=== PATIENT | male | born 1945 | race Caucasian/White ===

== ENCOUNTER 2017-05-06 11:26 | Day surgery (SDC) | payer MEDICARE ==
[~2017-05-06] VITALS: Ht 172.7 cm; Wt 108.3 kg
[2017-05-06] VITALS (9 sets, daily range): BP systolic 116–128; BP diastolic 59–62; PULSE 57–88; RESP 14–18; TEMP 97.5–98; O2SAT 94–98
[~2017-05-06 11:26] MED LIST: AMLO10TA2 PO; FENO145T2 PO; GLIP10TA6 PO; INSU1INJ5 SQ; LOSA100T2 PO; METF1000 PO; METO100T PO; MIRTA15 PO; PRAV20TA2 PO; VENL100T PO; ZOSTINJ SQ
[2017-05-06] MEDS ORDERED: IOHEXOL 350 MG/ML 100 ML BTL (for Cath Lab) OTHER ONE (11:27)
[2017-05-06] MEDS ORDERED: ISOS30TA3 PO (12:06)
[2017-05-06] MEDS ORDERED: [UNRECOGNIZED DRUG - OTHER] PO (12:06)
[2017-05-06] MEDS ORDERED: NITR1SUB3 SL (12:06)
[2017-05-06] MEDS ORDERED: ATOR40TA16 PO (12:06)
[2017-05-06 12:16] LABS: AUTOMATED NEUTROPHIL # 5.3 TH/MM3 (1.8-7.7); BASOPHIL % 0.5 % (0.0-2.0); EOSINOPHIL # 0.2 TH/MM3 (0-0.4); EOSINOPHIL % 1.8 % (0.0-4.0); HEMATOCRIT 40.7 % (39.0-51.0); HEMOGLOBIN 13.9 GM/DL (13.0-17.0); LYMPH % 27.2 % (9.0-44.0); LYMPHOCYTE # 2.3 TH/MM3 (1.0-4.8); MEAN CELL VOLUME 87.5 FL (80.0-100.0); MEAN CORPUSCULAR HGB CONC 34.3 % (32.0-36.0); MEAN PLATELET VOLUME 7.5 FL (7.0-11.0); MONO % 7.1 % (0.0-8.0); MONOCYTE # 0.6 TH/MM3 (0-0.9); NEUT % 63.4 % (16.0-70.0); PLATELET COUNT 312 TH/MM3 (150-450); RED BLOOD COUNT 4.65 MIL/MM3 (4.50-5.90); RED CELL DISTRIBUTION WIDTH 13.8 % (11.6-17.2); WHITE BLOOD COUNT 8.3 TH/MM3 (4.0-11.0)
[2017-05-06 12:26] LABS: INTERNATIONAL NORMALIZED RATIO 1.1 RATIO; PROTHROMBIN TIME - PATIENT 10.8 SEC (9.8-11.6)
[2017-05-06 12:30] LABS: BICARBONATE 29.1 MEQ/L (21.0-32.0); CALCIUM 9.8 MG/DL (8.5-10.1); CREATININE 1.42 MG/DL (0.60-1.30)
[2017-05-06] MEDS: HEPARIN-NS/PF INJ 1,000 ML ONE ×2 (13:28→15:58)
[2017-05-06] MEDS: MIDAZOLAM HCL 5 MG/5 ML VIAL ONE ×2 (13:46→16:55)
[2017-05-06] MEDS: HEPARIN SODIUM - IV 10,000 UNITS/10 ML VIAL ONE ×2 (14:24→15:58)
[2017-05-06] MEDS: CLOPIDOGREL 300 MG TAB ONE ×2 (14:59→16:55)
--- NOTE | 2017-05-06 15:24 | CATHPROC ---
[place] HIS Report Study Information Study Number Admission Scheduled Start Study Start [id number] May 06 2017 11:26AM 05/06/2017 May 06 2017 1:13PM [place] Service Cardiac Catheterization Admit Source Facility Department Other [facility] - Production Worker Physician and Clinical Staff Initial Porfirio Blood Chopped Strand Operator Lia Victor BSN Recorder Eusebia Lundy,RT(R) Scrub Alvin Miller,RT(R) Procedures Performed Procedure Location (Site) Vessel Name Angiogram LV LV Ventricle Coronary Angiograms LCA Left Coronary Coronary Angiograms RCA Right Coronary Coronary Angiograms VANESSA-LAD Left Coronary Coronary Angiograms RAMIREZ Graft Right Coronary Coronary Angiograms SVG-OM CIRC L Heart Cath PTCA Lft Main Dist Left Coronary Wire insertion Fem Art (right) Femoral Art Equipment Time Line Installer Description Size Mfg Part Number Used/Scraped TRANSDUCER, TRUWAVE [id number] 13:27 Standout Jobs * Used W/STOCKCOCK *[id number] BALLOON, 1.2 8MM EMERGE PUSH 14:32 BOSTON SCIENTIFIC 1.2 8MM [id number] Used MR 534-548T *[id number] 534-560T *[id number] 534-520T *[id number] *[id number] 14:49 DAIG/[facility] ANGIOSEAL, FR6 VIP FR 6 Used *[id number] 13:27 MEDLINE INDUSTRIES PACK, CCL CUSTOM * Used *[id number] 13:27 MEDLINE PACER PEN, SKIN DUAL W/ RULER * Used *[id number] 14:27 MEDTRONIC BALLOON, 2.0 X 12MM EUPHORA 12MM Used *[id number] BALLOON, 2.5 X 8MM NC [id number] 14:43 MEDTRONIC 8MM Used EUPHORA *[id number] PIG ANG 145 DXTERITY 13:38 MEDTRONIC FR 5 [id number] Used CATHETER [id number] 14:25 Freespee MEDICAL 30 ADRIANA INDEFLATOR Used *[id number] 14:22 Syllabuster SHEATH, FR6.5 PRELUDE 11CM FR 6.5 [id number] Used *[id number] 13:27 Syllabuster WIRE, 3MMJ .035 180CM 180CM Used *[id number] PROBE COVER, STERILE [id number] 13:27 Gyst MEDICAL * Used ULTRASOUND W/ GEL *[id number] 13:27 NAMIC MANIFOLD, 4 PORT * Used *[id number] 13:27 NAMIC TUBING, HIGH PRESSURE 48" 48" Used *[id number] 13:27 NYCOMED OMNIPAQUE, 350 MG, 150ML 150ML [id number] Used 13:36 NYCOMED OMNIPAQUE, 350 MG, 50ML 50ML [id number] Used 14:28 NYCOMED OMNIPAQUE, 350 MG, 50ML 50ML [id number] Used [id number] 13:27 [place] [facility] BL[employer]ET,WARM AIR CCL * Used *[id number] 13:27 TERUMO MEDICAL SHEATH, FR5 TERUMO (10CM) FR 5 Used *[id number] WIRE, RUNTHROUGH NS FLOPPY [id number] 14:25 TERUMO MEDICAL 180CM Used .014 180CM *[id number] Equipment Model, Serial, Lot Number and Expiration Data Description Model Number Serial Number Lot Number Expiration Date ANGIOSEAL, FR6 [facility] [id number] 02-04-2018 History: Current Medications Medication Dosage/Unit Route Frequency Last Date/Time Taken Glucophage LOPRESSOR NTG SL Statins (any) NORVASC Hyzaar History: Allergies Allergy Reaction No Known Allergies History: Risk Factors Family History of Hypertension Dyslipidemia Previous NC Previous Heart Failure Premature CAD Yes Yes Yes No No Prior Valve Prior PCI Prior CABG Prior CABGDate Surgery No No Yes 05/08/2002 Cerebrovascular Peripheral Artery Chronic Lung On Dialysis Diabetes Diabetes Therapy Disease Disease Disease No No No No Yes Oral History: Stress Tests Stress or Imaging Studies Performed Yes Standard Exercise Stress Test No Stress Echo No Stress Test SPECT Stress Test SPECT Result Stress Test SPECT Ischemia Risk/Extent Yes Positive Intermediate Stress Test CMR No Cardiac CTA Coronary Calcium Score No No Labs Hgb (g/dl) Hct (%) WBC (l/cumm) Platelets (thousands) 11.60-17.00 35.00-51.00 4.00-11.00 150.00-450.00 13.9 40.7 8.3 312 Glucose (mg/dl) BUN (mg/dl) Creatinine (mg/dl) BUN:Creatinine (1:x) 74.00-106.00 7.00-18.00 0.50-1.30 10.00-20.00 227 27 1.4 19.3 Na (meq/l) K (meq/l) 136.00-145.00 3.50-5.10 137 4 INR (PTT:PT) 0.90-1.10 1.1 CPK-MB (ng/ML) 0.50-3.60 Not Drawn Medication Medication Total Dose (Bolus/Oral) Medication Total Dosage/Unit 1% XYLOCAINE 20 mL FENTANYL 75 mcg HEPARIN 7000 units PLAVIX 600 mg VERSED 4 mg Medications (Bolus/Oral) Medication Time Given Dosage/Unit Administered By Reason VERSED 05/06/2017 1:46:29 PM 2 mg Edgarusjagjitak Lia 2 mg VERSED given in lab by Lia Victor , CHARLESN in Left Antecubital via Peripheral IV. Ordered b y Porfirio Lamb. FENTANYL 05/06/2017 1:47:05 PM 50 mcg Edgarusrobert Lia 50 mcg FENTANYL given in lab by Lia Victor , CHARLESN in Left Antecubital via Peripheral IV. Order ed by Porfirio Lamb. 1% XYLOCAINE 05/06/2017 1:52:26 PM 20 mL Porfirio Lamb 20 mL 1% XYLOCAINE given in lab by Porfirio Lamb in Right Groin via Subcutaneous. VERSED 05/06/2017 1:53:11 PM 1 mg Edgarusrobert Lia 1 mg VERSED given in lab by Lia Victor , BSN in Left Antecubital via Peripheral IV. Ordered b y Porfirio Lamb. HEPARIN 05/06/2017 2:24:22 PM 7000 units Raji Victoranda 7000 units HEPARIN given in lab by Lia Victor , BSN in Left Antecubital via Peripheral IV. Or dered by Porfirio Lamb. VERSED 05/06/2017 2:36:41 PM 1 mg Valente Lia 1 mg VERSED given in lab by Lia Victor , BSN in Left Antecubital via Peripheral IV. Ordered b y Porfirio Lamb. FENTANYL 05/06/2017 2:37:34 PM 25 mcg Edgarusrobert, Lia 25 mcg FENTANYL given in lab by Lia Victor , CHARLESN in Left Antecubital via Peripheral IV. Order ed by Porfirio Lamb. PLAVIX 05/06/2017 2:59:30 PM 600 mg Lia Victor 600 mg PLAVIX given in lab by Lia Victor BSN via Oral. Ordered by Porfirio Lamb. Medication (Drip) Medication Time Given Dosage/Unit Concentration/Unit Diluent (ml) Solution IV Solutions 05/06/2017 1:13:19 PM 50 mL (IV) NaCl .9 IV Solutions given in lab by Lia Victor BSN in Left Antecubital via Peripheral IV. Pump/Dri p Flow using NaCl .9. Initial Case Assessment Cardiovascular HR Rhythm NIBP Chest Pain 56 jg 124/69 0 Edema Present Skin color Skin Mild Normal Warm Dry Circulatory - Right Pulses Dorsalis Pedis Femoral 2 2 Scale (0,1,2,3,4,d) Circulatory - Left Pulses Dorsalis Pedis Femoral 2 2 Scale (0,1,2,3,4,d) Neurological State Oriented to time-place- Alert Moves all extremities person Respiration - General Respiration Rate SpO2 (%) (B/min) 16 93 Chronological Log Time Study Chronological Log 13:13:03 Patient arrived via Bed. 13:13:05 Patient Name, D.O.B, / Armband Verified By R.N. 13:13:05 Consent signed by the physician and the patient and verified by the Production Worker staff. 13:13:06 Pre-op and post- op instructions given; patient acknowledges understanding of instruction s. 13:13:07 Verbal Stimulation=2 Physical Stimulation=2 Airway=2 Respiration=2 TOTAL=8. (0=absent, 1= limited, 2=present) 13:13:08 Presedation assessment performed by Production Worker RN. 13:13:10 Patient has been NPO for More than 6Hrs. 13:13:11 Skin Breakdown- none per pt 13:13:15 Patient Warmer Placed on the Table. 13:13:16 Cordell Prominences Protected 13:13:18 A # 20 IV was noted in the Antecubital (left). Grade = 0 IV Solutions given in lab by Lia Victor BSN in Left Antecubital via Peripheral IV. Pump/Drip Flow using NaCl 13:13:19 .9. 13:13:20 History and physical on the chart or being dictated. Assessment: Initial Case, HR=56 BPM, Rhythm=jg, HTNN=233/69 mmhg, Chest Pain=0, Edema=Mild, Color=Normal, Skin = Warm, Dry Right Pulses: Erick Ped=2, Femoral=2 13:13:32 Left Pulses: Erick Ped=2, Femoral=2 Neurological: State=Alert, Ox3, WINTERS Respiration: Resp=16 B/min, SpO2=93 % Vitals capture started with the following parameters, Patient=Adult, Interval=5 min, Initial Pr rzgieo=724 mmHg, 13:19:46 Deflation Rate=5 mmHg, Cuff placed on Left Arm 13:21:02 HR=56 bpm, OBZN=543/69 mmhg, SpO2=94.0 %, Resp=19 B/min 13:21:17 Reference ECG taken 13:25:26 HR=57 bpm, SVGL=592/69 mmhg, SpO2=94.0 %, Resp=18 B/min 13:30:25 HR=58 bpm, UMSO=868/68 mmhg, SpO2=94.0 %, Resp=16 B/min 13:30:34 Bilateral groins prepped with 2% chlorhexidine, and draped after a 3 minute waiting time. 13:33:42 MD paged 13:35:28 HR=57 bpm, YEXP=942/67 mmhg, SpO2=93.0 %, Resp=18 B/min 13:35:33 Pressure channel 2 zeroed. 13:36:01 MD responded 13:40:27 HR=55 bpm, XIGH=375/67 mmhg, SpO2=93.0 %, Resp=15 B/min 13:45:33 MD arrived. 13:46:03 HR=60 bpm, UTXU=779/70 mmhg, SpO2=94.0 %, Resp=22 B/min 2 mg VERSED given in lab by Lia Victor BSN in Left Antecubital via Peripheral IV. Ord ered by Zainab, 13:46:29 Porfirio. 50 mcg FENTANYL given in lab by Lia Victor BSN in Left Antecubital via Peripheral IV. Ordered by Zainab, 13:47:05 Porfirio. 13:50:29 HR=56 bpm, FVIY=829/66 mmhg, SpO2=92.0 %, Resp=11 B/min Time Out. Correct patient, correct procedure, correct physician, power injector loaded with con trast with surgical team 13:51:41 present. Time Out Concurred by MD and individual staff in procedure. 13:52:24 Case Start 13:52:26 20 mL 1% XYLOCAINE given in lab by Porfirio Lamb in Right Groin via Subcutaneous. 1 mg VERSED given in lab by Lia Victor BSN in Left Antecubital via Peripheral IV. Ord ered by Zainab, 13:53:11 Porfirio. 13:54:48 Access site was Right Femoral Artery. 13:54:53 A SHEATH, FR5 TERUMO (10CM) FR 5 was advanced into the Fem Art (right) using the Percutaneo us technique. 13:55:22 HR=55 bpm, OPNK=501/61 mmhg, SpO2=93.0 %, Resp=11 B/min A PIG ANG 145 DXTERITY CATHETER FR 5 was advanced over a wire. OMNIPAQUE, 350 MG, 150ML 150ML w as used 13:56:12 for injections. Recorded Pressure: LV, HR=59, Condition=Condition 1 13:58:00 (Left Ventricle) LV 114/10/22 13:58:24 The LV was injected at 10 cc/sec for a total of 30. OMNIPAQUE, 350 MG, 50ML 50ML used. Recorded Pressure: LV, Ao, HR=57, Condition=Condition 1 13:59:33 (Left Ventricle) LV 107/11/19, (Aorta) Ao 103/54/74 13:59:47 Catheter was removed A JL 4.0 INFINITI CATHETER FR 5 was advanced over a wire. OMNIPAQUE, 350 MG, 150ML 150ML was us ed for 14:00:09 injections. 14:00:25 HR=56 bpm, SQXS=694/64 mmhg, SpO2=93.0 %, Resp=12 B/min 14:01:24 The LCA was injected and visualized at various angles. OMNIPAQUE, 350 MG, 150ML 150ML used . Recorded Pressure: Ao, HR=60, Condition=Condition 1 14:02:31 (Aorta) Ao 102/57/77 14:03:21 Catheter was removed A AR MOD INFINITI CATHETER FR 5 was advanced over a wire. OMNIPAQUE, 350 MG, 150ML 150ML was us ed for 14:03:35 injections. 14:05:12 The VANESSA-LAD was injected and visualized at various angles. OMNIPAQUE, 350 MG, 150ML 150ML used. 14:05:27 HR=57 bpm, VWUW=375/64 mmhg, SpO2=93.0 %, Resp=12 B/min 14:06:38 The SVG-OM was injected and visualized at various angles. OMNIPAQUE, 350 MG, 150ML 150ML us ed. 14:10:28 HR=57 bpm, YPSI=084/59 mmhg, SpO2=93.0 %, Resp=13 B/min 14:11:37 The RCA was injected and visualized at various angles. OMNIPAQUE, 350 MG, 150ML 150ML used . 14:12:28 A WIRE, 3MMJ .035 180CM 180CM was inserted via Fem Art (right). 14:13:03 Wire removed 14:15:27 HR=64 bpm, TCEM=330/63 mmhg, SpO2=96.0 %, Resp=14 B/min 14:15:50 Catheter was removed A ANTONIO INFINITI CATHETER FR 5 was advanced over a wire. OMNIPAQUE, 350 MG, 150ML 150ML was used for 14:16:30 injections. 14:18:35 The RAMIREZ to RCA Graft was injected and visualized at various angles. contrast used. 14:20:28 HR=61 bpm, LGUV=585/66 mmhg, SpO2=96.0 %, Resp=14 B/min 14:21:42 Catheter was removed A SHEATH, FR6.5 PRELUDE 11CM FR 6.5 was exchanged in the Fem Art (right). This was necessary in order to 14:22:25 accomodate a larger catheter. 7000 units HEPARIN given in lab by Lia Victor BSN in Left Antecubital via Peripheral IV. Ordered by 14:24:22 Porfirio Lamb. A XBLAD 4.0 GUIDE CATHETER FR 6 was advanced over a wire. OMNIPAQUE, 350 MG, 150ML 150ML was us ed for 14:24:50 injections. 14:25:25 HR=60 bpm, KPIF=875/69 mmhg, SpO2=97.0 %, Resp=13 B/min 14:26:59 A WIRE, RUNTHROUGH NS FLOPPY .014 180CM 180CM was inserted via Fem Art (right). 14:27:44 Interventional wire has crossed the lesion A BALLOON, 2.0 X 12MM EUPHORA 12MM was inserted over WIRE, RUNTHROUGH NS FLOPPY .014 180CM 180C M via 14:28:08 the Fem Art (right). 14:30:21 Balloon Removed. No inflation. 14:30:28 HR=62 bpm, GCUF=815/66 mmhg, SpO2=96.0 %, Resp=15 B/min A BALLOON, 1.2 8MM EMERGE PUSH MR 1.2 8MM was inserted over WIRE, RUNTHROUGH NS FLOPPY .014 180 CM 14:32:15 180CM via the Fem Art (right). A BALLOON, 1.2 8MM EMERGE PUSH MR 1.2 8MM over a WIRE, RUNTHROUGH NS FLOPPY .014 180CM 180CM in the 14:32:38 Lft Main Dist was inflated using a 30 ADRIANA INDEFLATOR at 16 adriana for 33 sec. A BALLOON, 1.2 8MM EMERGE PUSH MR 1.2 8MM over a WIRE, RUNTHROUGH NS FLOPPY .014 180CM 180CM in the 14:34:26 Lft Main Dist was inflated using a 30 ADRIANA INDEFLATOR at 16 adriana for 30 sec. 14:35:29 HR=65 bpm, ZKJP=360/62 mmhg, SpO2=96.0 %, Resp=20 B/min A BALLOON, 1.2 8MM EMERGE PUSH MR 1.2 8MM over a WIRE, RUNTHROUGH NS FLOPPY .014 180CM 180CM in the 14:35:43 Lft Main Dist was inflated using a 30 ADRIANA INDEFLATOR at 16 adriana for 20 sec. A BALLOON, 1.2 8MM EMERGE PUSH MR 1.2 8MM over a WIRE, RUNTHROUGH NS FLOPPY .014 180CM 180CM in the 14:35:50 Lft Main Dist was inflated using a 30 ADRIANA INDEFLATOR at 16 adriana for 22 sec. A BALLOON, 1.2 8MM EMERGE PUSH MR 1.2 8MM over a WIRE, RUNTHROUGH NS FLOPPY .014 180CM 180CM in the 14:36:24 Lft Main Dist was inflated using a 30 ADRIANA INDEFLATOR at 16 adriana for 22 sec. 1 mg VERSED given in lab by Lia Victor BSN in Left Antecubital via Peripheral IV. Ord ered by Zainab, 14:36:41 Porfirio. 14:37:08 Balloon Removed. 25 mcg FENTANYL given in lab by Lia Victor BSN in Left Antecubital via Peripheral IV. Ordered by Zainab, 14:37:34 Porfirio. A BALLOON, 2.0 X 12MM EUPHORA 12MM was inserted over WIRE, RUNTHROUGH NS FLOPPY .014 180CM 180C M via 14:38:42 the Fem Art (right). A BALLOON, 2.0 X 12MM EUPHORA 12MM over a WIRE, RUNTHROUGH NS FLOPPY .014 180CM 180CM in the Lf t Main 14:38:49 Dist was inflated using a 30 ADRIANA INDEFLATOR at 16 adriana for 40 sec. A BALLOON, 2.0 X 12MM EUPHORA 12MM over a WIRE, RUNTHROUGH NS FLOPPY .014 180CM 180CM in the Lf t Main 14:39:26 Dist was inflated using a 30 ADRIANA INDEFLATOR at 16 adriana for 40 sec. A BALLOON, 2.0 X 12MM EUPHORA 12MM over a WIRE, RUNTHROUGH NS FLOPPY .014 180CM 180CM in the Lf t Main 14:40:21 Dist was inflated using a 30 ADRIANA INDEFLATOR at 16 adriana for 36 sec. 14:40:30 HR=62 bpm, EZIQ=347/68 mmhg, SpO2=95.0 %, Resp=10 B/min 14:41:31 Balloon Removed. A BALLOON, 2.5 X 8MM NC EUPHORA 8MM was inserted over WIRE, RUNTHROUGH NS FLOPPY .014 180CM 180 CM via 14:44:16 the Fem Art (right). A BALLOON, 2.5 X 8MM NC EUPHORA 8MM over a WIRE, RUNTHROUGH NS FLOPPY .014 180CM 180CM in the L ft Main 14:44:24 Dist was inflated using a 30 ADRIANA INDEFLATOR at 24 adriana for 53 sec. 14:45:31 HR=60 bpm, SDRE=868/71 mmhg, SpO2=95.0 %, Resp=13 B/min 14:45:33 Balloon Removed. 14:46:37 Wire removed 14:46:42 Catheter was removed 14:47:32 An injection in the Fem Art (right) was made through the SHEATH, FR6.5 PRELUDE 11CM FR 6.5. 14:49:01 closure device placement in the Fem Art (right) 14:50:30 HR=64 bpm, MMXH=334/72 mmhg, SpO2=96.0 %, Resp=12 B/min 14:51:28 Case End 14:51:42 Sterile dressing applied to site 14:51:44 No case complications noted. 14:51:45 Cine recording checked. 14:51:47 Bedside Report will be given. 14:51:49 Implantable Device card placed in patient's chart. 14:51:52 Contrast Scanned 14:51:54 A Left Heart Cath was performed. 14:55:35 HR=60 bpm, FWKM=020/61 mmhg, SpO2=95.0 %, Resp=15 B/min 14:59:30 600 mg PLAVIX given in lab by Lia Victor BSN via Oral. Ordered by Porfirio Lamb . 15:00:24 Patient moved to carrier clinic End Study - Contrast Media Used In Study Contrast Total Opened (mL) Total Used (mL) Total Wasted (mL) Omnipaque 180 180 0 End Study - Maximum Contrast Load Max Contrast Load (mL) 386.9 End Study - Radiation Exposure Fluoro Time (minutes) 19.9 End Study - Patient Disposition Complications Transferred To Telemetry Bed
[2017-05-06] MEDS ORDERED: SODIUM CHLOR 0.9% 1000 ML INJ 1,000 ML IV SCH (17:29)
[2017-05-06] MEDS ORDERED: LIDOCAINE HCL 1% 30 ML VIAL INFIL PRN (17:30)
[2017-05-06] MEDS ORDERED: LORazepam 2 MG/ML VIAL IV PUSH PRN (17:30)
[2017-05-06] MEDS ORDERED: ATROPINE SULFATE 1 MG/ML VIAL IV PUSH PRN (17:30)
[2017-05-06] MEDS ORDERED: SODIUM CHLOR 0.9% 250 ML INJ 250 ML IV PRN (17:30)
[2017-05-06] MEDS ORDERED: MISC INFORMATION XX ONE (17:30)
[2017-05-06] MEDS ORDERED: TEMAZEPAM 15 MG CAP PO PRN (17:30)
[2017-05-06] MEDS ORDERED: BACITRACIN OINT 0.9 GM PKT TOP ONE (17:30)
[2017-05-06] MEDS ORDERED: ACETAMINOPHEN 325 MG TAB PO PRN (17:30)
[2017-05-06] MEDS ORDERED: LIDOCAINE 2% JELLY 30 ML TUBE TOP PRN (17:30)
[2017-05-06] MEDS ORDERED: LIDOCAINE HCL 2% JELLY 5 ML SYRINGE TOPICAL PRN (18:15)
[2017-05-06] MEDS ORDERED: MIRTAZAPINE 15 MG TAB PO SCH (21:00)
[2017-05-06] MEDS: INSULIN DETEMIR 100 UNITS/ML VIAL SQ SCH (21:00)
[2017-05-06] MEDS ORDERED: ATORVASTATIN 40 MG TAB PO SCH (21:00)
[2017-05-06 21:30] LABS: AUTOMATED NEUTROPHIL # 3.7 TH/MM3 (1.8-7.7); BASOPHIL % 0.4 % (0.0-2.0); EOSINOPHIL # 0.1 TH/MM3 (0-0.4); HEMATOCRIT 36.8 % (39.0-51.0); HEMOGLOBIN 12.7 GM/DL (13.0-17.0); LYMPH % 38.3 % (9.0-44.0); LYMPHOCYTE # 2.7 TH/MM3 (1.0-4.8); MEAN CELL VOLUME 86.9 FL (80.0-100.0); MEAN CORPUSCULAR HGB CONC 34.5 % (32.0-36.0); MEAN PLATELET VOLUME 7.1 FL (7.0-11.0); MONO % 7.6 % (0.0-8.0); MONOCYTE # 0.5 TH/MM3 (0-0.9); NEUT % 51.7 % (16.0-70.0); PLATELET COUNT 261 TH/MM3 (150-450); RED BLOOD COUNT 4.23 MIL/MM3 (4.50-5.90); RED CELL DISTRIBUTION WIDTH 13.5 % (11.6-17.2); WHITE BLOOD COUNT 7.1 TH/MM3 (4.0-11.0)
[2017-05-06] MEDS: METOPROLOL TARTRATE 100 MG TAB PO SCH (22:37)
[2017-05-07] VITALS (17 sets, daily range): BP systolic 112–143; BP diastolic 55–72; PULSE 52–80; RESP 14–16; TEMP 97.1–97.9; O2SAT 92–96
[2017-05-07] MEDS ORDERED: VENLAFAXINE HCL XR 75 MG CAP PO SCH (09:00)
[2017-05-07] MEDS ORDERED: ISOSORBIDE MONONITRATE 30 MG TAB PO SCH (09:00)
[2017-05-07] MEDS ORDERED: glipiZIDE 10 MG TAB PO SCH (09:00)
[2017-05-07] MEDS ORDERED: HYDROCHLOROTHIAZIDE 25 MG TAB PO SCH (09:00)
[2017-05-07] MEDS ORDERED: FENOFIBRATE 145 MG TAB PO SCH (09:00)
[2017-05-07] MEDS ORDERED: ASPIRIN 81 MG CHEW TAB PO SCH (09:00)
[2017-05-07] MEDS ORDERED: CLOPIDOGREL 75 MG TAB PO SCH (09:00)
[2017-05-07] MEDS ORDERED: NON-FORMULARY DRUG (Losartan-Hydrochlorothiazide 1 TAB) PO SCH (09:00)
[2017-05-07] MEDS ORDERED: LOSARTAN 50 MG TAB PO SCH (09:00)
--- NOTE | 2017-05-07 09:28 | EKG ---
Date Performed: 05/06/2017 Time Performed: 12:13:28 PTAGE: 71 years EKG: Sinus bradycardia with 1st degree A-V block. rSr'(V1) - probable normal variant Extensive S T-T changes may be due to myocardial ischemia Abnormal ECG NO PREVIOUS TRACING DOCTOR: Phoenix Mcdermott Interpretating Date/Time 05/07/2017 09:24:43
--- NOTE | 2017-05-07 09:51 | EKG ---
Date Performed: 05/07/2017 Time Performed: 06:20:34 PTAGE: 71 years EKG: Sinus rhythm with borderline 1st degree A-V block Ant/septal and lateral ST-T changes are nonspecific Borderline ECG Since the prior tracing, there has been no significant change PREVIOUS TRACING : 05/06/2017 19.08 DOCTOR: Phoenix Mcdermott Interpretating Date/Time 05/07/2017 09:47:42
--- NOTE | 2017-05-07 09:52 | EKG ---
Date Performed: 05/06/2017 Time Performed: 19:08:40 PTAGE: 71 years EKG: Sinus rhythm . rSr'(V1) - probable normal variant Possible anterior infarct - age undetermined Lateral ST-T change s may be due to myocardial ischemia Abnormal ECG Since the prior tracing, there has been no significa nt change PREVIOUS TRACING : 05/06/2017 12.13 DOCTOR: Phoenix Mcdermott Interpretating Date/Time 05/07/2017 09:47:51
[2017-05-07 10:00] LABS: AUTOMATED NEUTROPHIL # 4.6 TH/MM3 (1.8-7.7); BASOPHIL % 0.4 % (0.0-2.0); EOSINOPHIL # 0.2 TH/MM3 (0-0.4); EOSINOPHIL % 2.7 % (0.0-4.0); HEMATOCRIT 38.2 % (39.0-51.0); HEMOGLOBIN 13.6 GM/DL (13.0-17.0); LYMPH % 34.7 % (9.0-44.0); MEAN CORPUSCULAR HGB CONC 35.6 % (32.0-36.0); MEAN PLATELET VOLUME 7.1 FL (7.0-11.0); MONO % 7.9 % (0.0-8.0); MONOCYTE # 0.7 TH/MM3 (0-0.9); NEUT % 54.3 % (16.0-70.0); PLATELET COUNT 266 TH/MM3 (150-450); RED CELL DISTRIBUTION WIDTH 13.7 % (11.6-17.2); WHITE BLOOD COUNT 8.6 TH/MM3 (4.0-11.0)
[2017-05-07 10:14] LABS: BICARBONATE 30.1 MEQ/L (21.0-32.0); CALCIUM 9.5 MG/DL (8.5-10.1); CREATININE 1.13 MG/DL (0.60-1.30)
[2017-05-07 10:17] LABS: CHOLESTEROL/ HDL RATIO 4.46 RATIO; HDL CHOLESTEROL 33.6 MG/DL (40.0-60.0)
[2017-05-07] MEDS: INSULIN DETEMIR 100 UNITS/ML VIAL SQ SCH (10:44)
[2017-05-07] MEDS: METOPROLOL TARTRATE 100 MG TAB PO SCH (10:45)
--- NOTE | 2017-05-07 11:08 | MA ---
cc: JUDAH OMALLEY DATE 05/06/2017 INDICATION FOR PROCEDURE Unstable angina, coronary artery disease, history of three-vessel coronary bypass, intermediate risk nuclear myocardial perfusion study. PROCEDURE PERFORMED 1. Retrograde heart catheterization with left ventriculography and selective coronary angiography, saphenous venous graft angiography, left internal mammary artery angiography, and right internal mammary artery angiography. 2. Angioplasty of the distal left main coronary artery. 3. Moderate sedation. ACCESS SITE Right femoral artery. EQUIPMENT USED 5 [place] pigtail catheter, 5 [place] JL 4.0 and AR modified coronary catheters, left internal mammary artery catheter, XB LAD 4.0, Runthrough wire 1.2, 2.0 compliant balloon, 2.5 x 8 mm noncompliant balloon at 25 atmospheres. MEDICATION Versed IV, fentanyl IV, heparin IV, Plavix 600 mg p.o. CONTRAST Omnipaque 180 cc. COMPLICATIONS None. ESTIMATED BLOOD LOSS Less than 10 cc. METHOD OF HEMOSTASIS Angio-Seal closure. RESULTS HEMODYNAMICS Heart rate 60 beats per minute. Left end-diastolic pressure 11 mmHg. Left ventricle 105/11, aorta 105/57/77. LEFT VENTRICULOGRAPHY Ejection fraction 50%. Wall motion normal. No mitral regurgitation. CORONARY ANGIOGRAPHY The left main coronary artery has 99% stenosis in the distal portion which is heavily calcified. The proximal LAD is patent. The mid LAD is totally occluded distally to the first marginal branch and first septal branch. The first diagonal artery has 60% proximal stenosis. The first septal artery is patent. The left circumflex artery is totally occluded in the proximal portion. OM1 is totally occluded. The right coronary artery is totally occluded in the proximal portion. The ramus intermedius is patent. The left internal mammary artery graft to the left anterior descending artery is patent. The distal LAD has 50% stenosis. The saphenous venous graft to the obtuse marginal artery is widely patent. The right internal mammary artery to the right coronary artery is patent. The distal right coronary artery has mild diffuse disease. The stenosis in the left main coronary artery was 99%. Lesion length 5 mm. Pre IAIN flow II, post IAIN flow III, post stenosis 60%. Post intervention angiography revealed patent dilated segments and no evidence of dissection, thrombosis of distal embolization. DIAGNOSIS 1. Coronary artery disease with 3/3 grafts patent with severe disease in the distal left main coronary artery. 2. Successful angioplasty of the distal left main coronary artery. 3. Borderline normal left ventricular systolic function. DISPOSITION Mr. Cabrera will be monitored on telemetry after this procedure. He will be discharged home when stable tomorrow. Will continue therapy with Plavix and a baby aspirin. Will also continue aggressive modification of his cardiac risk factors. MD SEBASTIAN Navarro/THEO /3:15 PM /10:49 AM
--- NOTE | 2017-05-07 15:51 | PD.CARD.PN ---
Subjective Subjective Remarks No CP or SOB, feels fine Objective Medications Current Medications Medications (Trade) Dose Ordered Sig/Susan Route Start Time Stop Time Status Last Admin (Norvasc) 10 mg DAILY PO 05/07/17 09:00 05/07/17 10:45 (Lipitor) 40 mg HS PO 05/06/17 21:00 05/06/17 22:37 (Tricor) 145 mg DAILY PO 05/07/17 09:00 05/07/17 10:45 (Glucotrol) 10 mg DAILY PO 05/07/17 09:00 05/07/17 10:46 (Imdur) 30 mg DAILY PO 05/07/17 09:00 05/07/17 10:46 (Lopressor) 100 mg BID PO 05/06/17 21:00 05/07/17 10:45 (Remeron) 15 mg HS PO 05/06/17 21:00 05/06/17 22:37 (Effexor Xr) 150 mg DAILY PO 05/07/17 09:00 05/07/17 10:45 (Levemir Inj) 62 units BID SQ 05/06/17 21:00 05/07/17 10:44 (Tylenol) 325 mg Q4H PRN PO 05/06/17 17:30 (Restoril) 15 mg HS PRN PO 05/06/17 17:30 (Aspirin Chew) 81 mg DAILY PO 05/07/17 09:00 05/07/17 10:46 (Plavix) 75 mg DAILY PO 05/07/17 09:00 05/07/17 10:45 (Ativan Inj) 0.5 mg UNSCH PRN IV PUSH 05/06/17 17:30 05/07/17 17:29 (Atropine Inj) 0.5 mg UNSCH PRN IV PUSH 05/06/17 17:30 (Xylocaine 1% Inj) 10 ml UNSCH PRN INFIL 05/06/17 17:30 05/07/17 17:29 (Cozaar) 100 mg DAILY PO 05/07/17 09:00 05/07/17 10:45 (Hydrodiuril) 25 mg DAILY PO 05/07/17 09:00 05/07/17 10:46 (Xylocaine 2% Jelly) 1 ml UNSCH PRN TOPICAL 05/06/17 18:15 Vital Signs / I&O Vital Signs Date Time Temp Pulse Resp B/P (MAP) Pulse Ox O2 Delivery O2 Flow Rate FiO2 05/07/17 15:00 59 05/07/17 15:00 97.4 62 14 117/63 (81) 92 05/07/17 14:00 53 05/07/17 13:00 54 05/07/17 12:00 66 05/07/17 11:00 97.9 66 16 133/64 (87) 94 05/07/17 11:00 64 05/07/17 10:00 72 05/07/17 09:00 76 05/07/17 08:00 57 05/07/17 07:00 97.6 69 16 143/72 (95) 96 05/07/17 07:00 52 05/07/17 06:00 54 05/07/17 05:00 66 05/07/17 04:00 60 05/07/17 03:00 97.1 62 14 112/55 (74) 92 05/07/17 03:00 62 05/07/17 02:00 68 05/07/17 01:00 64 05/07/17 00:00 80 05/06/17 23:00 98.0 88 14 128/62 (84) 95 05/06/17 23:00 88 05/06/17 22:00 72 05/06/17 21:00 64 05/06/17 20:00 68 05/06/17 19:00 97.7 78 14 128/62 (84) 94 05/06/17 19:00 78 05/06/17 18:07 18 05/06/17 18:05 63 05/06/17 18:00 98.0 67 18 118/59 (78) 98 05/06/17 17:09 59 I/O 05/06/17 05/06/17 05/06/17 05/07/17 05/07/17 05/07/17 07:00 15:00 23:00 07:00 15:00 23:00 Intake Total 240 ml 240 ml Balance 240 ml 240 ml Intake Oral 240 ml 240 ml # Voids 3 # Bowel Movements 0 Physical Exam GENERAL: In NAD SKIN: Warm and dry. HEAD: Normocephalic. EYES: No scleral icterus. No injection or drainage. NECK: Supple, trachea midline. No JVD or lymphadenopathy. CARDIOVASCULAR: Regular rate and rhythm without murmurs, gallops, or rubs. RESPIRATORY: Breath sounds equal bilaterally. No accessory muscle use. GASTROINTESTINAL: Abdomen soft, non-tender, nondistended. MUSCULOSKELETAL: No cyanosis, or edema. Groin stable Laboratory Laboratory Tests Test 05/06/17 20:47 05/07/17 09:51 White Blood Count 7.1 TH/MM3 8.6 TH/MM3 Red Blood Count 4.23 MIL/MM3 4.40 MIL/MM3 Hemoglobin 12.7 GM/DL 13.6 GM/DL Hematocrit 36.8 % 38.2 % Mean Corpuscular Volume 86.9 FL 87.0 FL Mean Corpuscular Hemoglobin 30.0 PG 31.0 PG Mean Corpuscular Hemoglobin Concent 34.5 % 35.6 % Red Cell Distribution Width 13.5 % 13.7 % Platelet Count 261 TH/MM3 266 TH/MM3 Mean Platelet Volume 7.1 FL 7.1 FL Neutrophils (%) (Auto) 51.7 % 54.3 % Lymphocytes (%) (Auto) 38.3 % 34.7 % Monocytes (%) (Auto) 7.6 % 7.9 % Eosinophils (%) (Auto) 2.0 % 2.7 % Basophils (%) (Auto) 0.4 % 0.4 % Neutrophils # (Auto) 3.7 TH/MM3 4.6 TH/MM3 Lymphocytes # (Auto) 2.7 TH/MM3 3.0 TH/MM3 Monocytes # (Auto) 0.5 TH/MM3 0.7 TH/MM3 Eosinophils # (Auto) 0.1 TH/MM3 0.2 TH/MM3 Basophils # (Auto) 0.0 TH/MM3 0.0 TH/MM3 CBC Comment DIFF FINAL DIFF FINAL Differential Comment Blood Urea Nitrogen 19 MG/DL Creatinine 1.13 MG/DL Random Glucose 203 MG/DL Calcium Level 9.5 MG/DL Sodium Level 139 MEQ/L Potassium Level 4.1 MEQ/L Chloride Level 105 MEQ/L Carbon Dioxide Level 30.1 MEQ/L Anion Gap 4 MEQ/L Estimat Glomerular Filtration Rate 64 ML/MIN Total Creatine Kinase 81 U/L Triglycerides Level 221 MG/DL Cholesterol Level 150 MG/DL LDL Cholesterol 72 MG/DL HDL Cholesterol 33.6 MG/DL Cholesterol/HDL Ratio 4.46 RATIO Assessment and Plan Problem List: (1) Angina pectoris ICD Codes: I20.9 - Angina pectoris, unspecified (2) Abnormal nuclear cardiac imaging test ICD Codes: R93.1 - Abnormal findings on diagnostic imaging of heart and coronary circulation (3) History of coronary artery bypass graft x 3 ICD Codes: Z95.1 - Presence of aortocoronary bypass graft Status: Chronic (4) Hypertension ICD Codes: I10 - Essential (primary) hypertension Status: Chronic (5) Hyperlipidemia ICD Codes: E78.5 - Hyperlipidemia, unspecified Status: Chronic (6) Diabetes mellitus ICD Codes: E11.9 - Type 2 diabetes mellitus without complications Status: Chronic Assessment and Plan No angina. Continue current program with Plavix, ASA, statin, and beta vale. Groin stable. DC home. Will schedule outpt f/u. Porfirio Lamb MD May 07, 2017 15:51
[2017-05-07] MEDS ORDERED: PLAV75TA29 PO (16:20)
[2017-05-07] MEDS ORDERED: ASPI81TA23 PO (16:20)
[2017-05-09] MEDS ORDERED: ACTO45TA15 PO (10:47)
== END 2017-05-07 16:00 | disposition home or self-care (01) ==
LOC: HDIC 11:26 → HCAT 11:26 → HCPC 16:35 → HCAT 05-07 16:00
PROVIDERS: ATTEND Internal Medicine Interventional Cardiology
DX: I25.110 Atherosclerotic heart disease of native coronary artery with unstable angina pectoris (principal); I10 Essential (primary) hypertension; E78.5 Hyperlipidemia, unspecified; E03.9 Hypothyroidism, unspecified; E11.9 Type 2 diabetes mellitus without complications; Z79.4 Long term (current) use of insulin; Z79.02 Long term (current) use of antithrombotics/antiplatelets; Z79.82 Long term (current) use of aspirin; Z79.51 Long term (current) use of inhaled steroids
CPT/HCPCS: 80048; 80061; 82550; 85025; 85610; 85730; 92920; 93005; 93459; 99152; 99153; C1725; C1760; C1769; C1887; C1893; G0269; J1644; J2250; J3010; J7030; Q9967